=== PATIENT | female | born 1960 | race Caucasian/White ===

== ENCOUNTER 2017-10-18 17:08 | Emergency (ER) | payer OTHER ==
[~2017-10-18] VITALS: Ht 177.8 cm; Wt 117.9 kg
[2017-10-18 17:30] VITALS: BP_SYST 156
[2017-10-18] MEDS ORDERED: NACL 0.9% 1,000 ML IV ONE (18:15)
[2017-10-18] MEDS ORDERED: PROCHLORPERAZINE EDISYLATE 10 MG/2 ML VIAL IVP ONE (18:15)
[2017-10-18] MEDS ORDERED: SUMAtriptan SUCCINATE 6 MG/0.5 ML VIAL SUBCUT ONE (19:00)
[2017-10-18 19:32] VITALS: BP_SYST 145
== END 2017-10-18 19:32 | disposition home or self-care (01) ==
LOC: SED 17:08
DX: J32.9 Chronic sinusitis, unspecified (principal); G43.909 Migraine, unspecified, not intractable, without status migrainosus; R03.0 Elevated blood-pressure reading, without diagnosis of hypertension
CPT/HCPCS: 96361; 96372; 96374; 99284; J0780; J3030; J7030